=== PATIENT | female | born 1955 | race Caucasian/White ===

== ENCOUNTER 2022-04-20 14:53 | Outpatient (REF) | payer MEDICARE, MEDICAID, SELFPAY ==
[2022-04-21 08:38] LABS: CT PCR DETECTED (Not Detect.); NG PCR NOT DETECTED (Not Detect.)
== END 2022-04-20 14:54 | disposition home or self-care (01) ==
LOC: HO.HMGCLDS 14:53
DX: Z11.3 Encounter for screening for infections with a predominantly sexual mode of transmission (principal); Z20.2 Contact with and (suspected) exposure to infections with a predominantly sexual mode of transmission
CPT/HCPCS: 87491; 87591

== ENCOUNTER 2022-06-29 08:08 | Outpatient (REF) | payer MEDICARE, MEDICAID, SELFPAY ==
[2022-06-29 09:02] LABS: Amylase 73 U/L (28-100); Anion Gap 16 (12-20); Blood Urea Nitrogen 15 mg/dL (9-16); Calcium 9.3 mg/dL (8.4-10.2); Carbon Dioxide 22 mmol/L (22-29); Chloride 105 mmol/L (96-108); Estimated Glomerular Filt Rate > 60; Glucose Random 96 mg/dL (60-115); Lipase 26 U/L (8-78); Potassium 4.3 mmol/L (3.3-5.1); Sodium 139 mmol/L (135-145)
[2022-06-29 10:56] LABS: Cortisol Random 10.5 ug/dL
[2022-06-30 13:51] LABS: Adrenocorticotropic Hormone 11 pg/mL (6-50)
== END 2022-06-29 08:09 | disposition home or self-care (01) ==
LOC: HO.LAB 08:08
PROVIDERS: Visit Provider Internal Medicine Endocrinology, Diabetes & Metabolism
DX: E87.1 Hypo-osmolality and hyponatremia (principal); R63.4 Abnormal weight loss; R11.0 Nausea
CPT/HCPCS: 36415; 80048; 82024; 82150; 82533; 83690